=== PATIENT | male | born 1930 | race Caucasian/White ===

== ENCOUNTER → 2017-06-15 | Outpatient (CLI) | payer MEDICARE ==
[~2017-06-15] MED LIST: ACET325 PO; AKWA Tears15 ML BOTHEYES; ASPI81CH PO; Avapro PO; CALCIUM PO; CHLO25B PO; CHOL10002 PO; Cinnamon500 MG PO; FINA5 PO; FURO20 PO; GREEN TEA PO; IRBE150 PO; IRON GLYCINATE 28 MG PO; KRILL OIL 5001 EACH PO; LEG CRAMP PO; MEGARED PO; METO50 PO; METO50ER PO; NIAC500ER PO; POTCHL10ER PO; PROSTATE COMPLEX PO; PROSTATE HEALT1 EACH PO; ROSU10TA PO; ROSU5 PO; TAMS.4ER PO; TEMOVATE15 GM TOP; VIT D3 PO
[2017-06-15 16:07] LABS: BASOPHILS ABSOLUTE AUTO 0.05 K/mm3 (0.00-0.23); BASOPHILS PERCENT AUTO 1 % (0-2); EOSINOPHILS ABSOLUTE AUTO 0.26 K/mm3 (0.00-0.68); EOSINOPHILS PERCENT AUTO 4 % (0-6); Hematocrit 36.5 % (37.0-53.0); Hemoglobin 12.9 g/dL (13.5-17.5); IMMATURE GRAN ABSOLUTE AUTO 0.04 K/mm3 (0.00-0.10); IMMATURE GRAN PERCENT AUTO 1 % (0-1); LYMPHOCYTES ABSOLUTE AUTO 1.62 K/mm3 (0.84-5.20); LYMPHOCYTES PERCENT AUTO 22 % (21-46); MONOCYTES ABSOLUTE AUTO 0.75 K/mm3 (0.16-1.47); MONOCYTES PERCENT AUTO 10 % (4-13); Mean Corpuscular HGB 31.6 pg (26.0-34.0); Mean Corpuscular HGB Conc 35.3 g/dL (31.5-36.5); Mean Corpuscular Volume 90 fL (80-100); Mean Platelet Volume 9.2 fL (9.1-12.4); NEUTROPHILS ABSOLUTE AUTO 4.68 K/mm3 (1.96-9.15); NEUTROPHILS PERCENT AUTO 63 % (41-73); Platelet Count 273 K/mm3 (150-400); RDW Coefficient Variation 12.2 % (11.7-14.2); RDW Standard Deviation 39.5 fL (35.1-46.3); Red Blood Cell Count 4.08 M/mm3 (4.30-5.90)
[2017-06-15 16:18] LABS: Alanine Aminotransfer (ALT/SGP 38 U/L (12-78); Albumin, Blood 3.5 g/dL (3.4-5.0); Alk Phos 75 U/L (40-126); Anion Gap 8 mmol/L (6-16); Aspartate Aminotrans (AST/SGOT 24 U/L (12-37); Bilirubin, Total 0.4 mg/dL (0.1-1.0); Blood Urea Nitrogen 19 mg/dL (8-24); Bun/Creatinine Ratio 19.8 (12.0-20.0); CO2, Blood 27 mmol/L (21-32); Calcium, Blood 9.6 mg/dL (8.5-10.1); Chloride, Blood 102 mmol/L (98-108); Creatinine, Blood 0.96 mg/dL (0.60-1.20); Globulin, Blood 3.4 g/dL (2.2-4.0); Glomerular Filtration Rate >60 (60-); Glucose, Blood 128 mg/dL (70-99); Potassium, Blood 3.6 mmol/L (3.5-5.5); Sodium, Blood 137 mmol/L (136-145); Total Protein, Blood 6.9 g/dL (6.4-8.2)
== END ==
LOC: LAB EV 16:01 → LAB SHORT 16:01
PROVIDERS: Physician Assistant
DX: R05 Cough (principal); R06.01 Orthopnea
CPT/HCPCS: 80053; 83880; 85025

== ENCOUNTER 2017-10-26 06:35 | Inpatient (IN) | payer MEDICARE ==
[~2017-10-26] VITALS: Ht 167.6 cm; Wt 91.9 kg
[~2017-10-26 06:35] MED LIST changes: -AKWA Tears15 ML BOTHEYES; -FURO20 PO; -METO50ER PO; -POTCHL10ER PO; -ROSU10TA PO; -TEMOVATE15 GM TOP
[2017-10-26 07:02] LABS: BASOPHILS ABSOLUTE AUTO 0.02 K/mm3 (0.00-0.23); BASOPHILS PERCENT AUTO 0 % (0-2); EOSINOPHILS ABSOLUTE AUTO 0.09 K/mm3 (0.00-0.68); EOSINOPHILS PERCENT AUTO 2 % (0-6); Hemoglobin 13.7 g/dL (13.5-17.5); IMMATURE GRAN ABSOLUTE AUTO 0.01 K/mm3 (0.00-0.10); IMMATURE GRAN PERCENT AUTO 0 % (0-1); LYMPHOCYTES ABSOLUTE AUTO 0.89 K/mm3 (0.84-5.20); LYMPHOCYTES PERCENT AUTO 15 % (21-46); MONOCYTES ABSOLUTE AUTO 0.56 K/mm3 (0.16-1.47); MONOCYTES PERCENT AUTO 9 % (4-13); Mean Corpuscular HGB 31.4 pg (26.0-34.0); Mean Corpuscular HGB Conc 34.3 g/dL (31.5-36.5); Mean Corpuscular Volume 92 fL (80-100); Mean Platelet Volume 9.3 fL (9.1-12.4); NEUTROPHILS ABSOLUTE AUTO 4.51 K/mm3 (1.96-9.15); NEUTROPHILS PERCENT AUTO 74 % (41-73); Platelet Count 202 K/mm3 (150-400); RDW Coefficient Variation 12.1 % (11.7-14.2); RDW Standard Deviation 40.8 fL (35.1-46.3); Red Blood Cell Count 4.37 M/mm3 (4.30-5.90); White Blood Cell Count 6.08 K/mm3 (4.00-11.30)
[2017-10-26 07:14] LABS: Alanine Aminotransfer (ALT/SGP 26 U/L (12-78); Albumin, Blood 3.7 g/dL (3.4-5.0); Albumin/Globulin Ratio 1.2 (0.8-1.8); Alk Phos 61 U/L (50-136); Anion Gap 10 mmol/L (6-16); Aspartate Aminotrans (AST/SGOT 43 U/L (12-37); Bilirubin, Total 0.5 mg/dL (0.1-1.0); Blood Urea Nitrogen 18 mg/dL (8-24); Bun/Creatinine Ratio 23.8 (12.0-20.0); CO2, Blood 24 mmol/L (21-32); Calcium, Blood 8.9 mg/dL (8.5-10.1); Chloride, Blood 108 mmol/L (98-108); Creatinine, Blood 0.76 mg/dL (0.60-1.20); Globulin, Blood 3.1 g/dL (2.2-4.0); Glomerular Filtration Rate >60 (60-); Glucose, Blood 140 mg/dL (70-99); Potassium, Blood 3.6 mmol/L (3.5-5.5); Sodium, Blood 142 mmol/L (136-145); Total Protein, Blood 6.8 g/dL (6.4-8.2); Troponin I <0.015 ng/mL (0.000-0.040)
[2017-10-26 07:22] LABS: International Normalized Ratio 0.95; Prothrombin Time Results 9.8 Sec (9.7-11.5)
[2017-10-26 07:54] LABS: Source, Urine Clean Catch
[2017-10-26] MEDS ORDERED: ROSU10TA PO (08:02)
[2017-10-26] MEDS ORDERED: POTCHL10ER PO (08:03)
[2017-10-26] MEDS ORDERED: FURO20 PO (08:03)
[2017-10-26 08:07] LABS: Bilirubin, Urine Neg (Neg); Blood, Urine 2+ (Neg); Glucose Qualitative, Urine 1+ (Neg); Ketones, Urine 1+ (Neg); Leukocyte Esterase, Urine Neg (Neg); Nitrite, Urine Neg (Neg); Protein, Urine 2+ (Neg); Urobilinogen, Urine NORM (Normal)
[2017-10-26 08:21] LABS: Appearance, Urine Clear (Clear); Color, Urine Yellow (P-Yellow)
[2017-10-26 08:23] LABS: Bacteria Rare /hpf; Calcium Oxalate Crystals Few /hpf; Mucus Light (0-Heavy); Red Blood Cells, Urine 0-2 /hpf (0-2); Squamous Epithelial Cells Few /hpf (Few)
[2017-10-30 10:12] LABS: BASOPHILS ABSOLUTE AUTO 0.02 K/mm3 (0.00-0.23); BASOPHILS PERCENT AUTO 0 % (0-2); EOSINOPHILS ABSOLUTE AUTO 0.02 K/mm3 (0.00-0.68); EOSINOPHILS PERCENT AUTO 0 % (0-6); Hemoglobin 15.1 g/dL (13.5-17.5); IMMATURE GRAN ABSOLUTE AUTO 0.03 K/mm3 (0.00-0.10); IMMATURE GRAN PERCENT AUTO 0 % (0-1); LYMPHOCYTES ABSOLUTE AUTO 0.89 K/mm3 (0.84-5.20); LYMPHOCYTES PERCENT AUTO 9 % (21-46); MONOCYTES ABSOLUTE AUTO 0.85 K/mm3 (0.16-1.47); MONOCYTES PERCENT AUTO 9 % (4-13); Mean Corpuscular HGB 31.3 pg (26.0-34.0); Mean Corpuscular HGB Conc 34.3 g/dL (31.5-36.5); Mean Corpuscular Volume 91 fL (80-100); Mean Platelet Volume 9.5 fL (9.1-12.4); NEUTROPHILS ABSOLUTE AUTO 8.05 K/mm3 (1.96-9.15); NEUTROPHILS PERCENT AUTO 82 % (41-73); Platelet Count 239 K/mm3 (150-400); RDW Standard Deviation 40.2 fL (35.1-46.3); Red Blood Cell Count 4.82 M/mm3 (4.30-5.90); White Blood Cell Count 9.86 K/mm3 (4.00-11.30)
[2017-10-30 10:24] LABS: Anion Gap 10 mmol/L (6-16); Blood Urea Nitrogen 30 mg/dL (8-24); Bun/Creatinine Ratio 32.3 (12.0-20.0); CO2, Blood 25 mmol/L (21-32); Calcium, Blood 9.4 mg/dL (8.5-10.1); Chloride, Blood 104 mmol/L (98-108); Creatinine, Blood 0.93 mg/dL (0.60-1.20); Glomerular Filtration Rate >60 (60-); Glucose, Blood 162 mg/dL (70-99); Potassium, Blood 3.8 mmol/L (3.5-5.5); Sodium, Blood 139 mmol/L (136-145)
[2017-11-03 05:18] LABS: Anion Gap 8 mmol/L (6-16); Blood Urea Nitrogen 16 mg/dL (8-24); CO2, Blood 27 mmol/L (21-32); Calcium, Blood 8.6 mg/dL (8.5-10.1); Chloride, Blood 106 mmol/L (98-108); Glomerular Filtration Rate >60 (60-); Glucose, Blood 113 mg/dL (70-99); Potassium, Blood 3.3 mmol/L (3.5-5.5); Sodium, Blood 141 mmol/L (136-145)
[2017-11-06 18:41] LABS: Thyroid Stimulating Hormone 2.44 uIU/mL (0.360-4.800)
[2017-11-07 10:30] LABS: Anion Gap 8 mmol/L (6-16); Blood Urea Nitrogen 14 mg/dL (8-24); Bun/Creatinine Ratio 16.2 (12.0-20.0); CO2, Blood 26 mmol/L (21-32); Calcium, Blood 9.7 mg/dL (8.5-10.1); Chloride, Blood 103 mmol/L (98-108); Creatinine, Blood 0.87 mg/dL (0.60-1.20); Glomerular Filtration Rate >60 (60-); Glucose, Blood 136 mg/dL (70-99); Potassium, Blood 4.1 mmol/L (3.5-5.5); Sodium, Blood 137 mmol/L (136-145)
[2017-11-09 05:13] LABS: Potassium, Blood 4.4 mmol/L (3.5-5.5)
[2017-11-13 12:13] LABS: Adenovirus F 40/41 Not Detected (NOT DETECT); Astrovirus Not Detected (NOT DETECT); Campylobacter Sp Not Detected (NOT DETECT); Cryptosporidium Not Detected (NOT DETECT); Cyclospora Cayetanensis Not Detected (NOT DETECT); E. Coli O157 Not Detected (NOT DETECT); Entamoeba Histolytica Not Detected (NOT DETECT); Enteroaggregative E. coli-EAEC Not Detected (NOT DETECT); Enteropathogenic E. coli-EPEC Not Detected (NOT DETECT); Enterotoxigenic E. coli-ETEC Not Detected (NOT DETECT); Giardia Lamblia Not Detected (NOT DETECT); Norovirus GI/GII Not Detected (NOT DETECT); Plesiomonas Shigelloides Not Detected (NOT DETECT); Rotavirus A Not Detected (NOT DETECT); Salmonella Sp Not Detected (NOT DETECT); Sapovirus Not Detected (NOT DETECT); Shiga Toxin-prod E. coli-STEC Not Detected (NOT DETECT); Shigella/Enteroin E. coli-EIEC Not Detected (NOT DETECT); Vibrio Cholerae Not Detected (NOT DETECT); Vibrio Sp Not Detected (NOT DETECT); Yersinia Enterocolitica Not Detected (NOT DETECT)
[2017-11-14 07:22] LABS: Anion Gap 8 mmol/L (6-16); Blood Urea Nitrogen 16 mg/dL (8-24); Bun/Creatinine Ratio 19.9 (12.0-20.0); CO2, Blood 26 mmol/L (21-32); Calcium, Blood 9.2 mg/dL (8.5-10.1); Chloride, Blood 107 mmol/L (98-108); Glomerular Filtration Rate >60 (60-); Glucose, Blood 109 mg/dL (70-99); Potassium, Blood 4.3 mmol/L (3.5-5.5); Sodium, Blood 141 mmol/L (136-145)
[2017-11-14] MEDS ORDERED: METO50ER PO (16:19)
[2017-11-14] MEDS ORDERED: TEMOVATE15 GM TOP (16:20)
[2017-11-14] MEDS ORDERED: AKWA Tears15 ML BOTHEYES (16:22)
== END 2017-11-15 13:35 | disposition home health service (06) | DRG 390 ==
LOC: DELPENDDIS → ER 06:35 → MEDS 06:36 → ENPENDDIS 11-04 12:04 → EDPENDDIS 11-14 15:44 → MEDS 11-15 13:35
PROVIDERS: Emergency Medicine; Internal Medicine; Internal Medicine Gastroenterology; Student in an Organized Health Care Education/Training Program
PROC: 0D7 Gastrointestinal System, Dilation (ICD-10-PCS; principal; 2017-11-02 15:30)
PROC: 0D7 Gastrointestinal System, Dilation (ICD-10-PCS; 2017-11-08)
PROC: 5A09357 Assistance with Respiratory Ventilation, Less than 24 Consecutive Hours, Continuous Positive Airway Pressure (ICD-10-PCS; 2017-11-10)
DX: K56.0 Paralytic ileus (principal); I10 Essential (primary) hypertension; Z95.0 Presence of cardiac pacemaker; E78.5 Hyperlipidemia, unspecified; G47.33 Obstructive sleep apnea (adult) (pediatric); E66.9 Obesity, unspecified; R14.0 Abdominal distension (gaseous); R06.6 Hiccough; R19.7 Diarrhea, unspecified; N40.1 Benign prostatic hyperplasia with lower urinary tract symptoms; R33.8 Other retention of urine; E87.6 Hypokalemia; K43.9 Ventral hernia without obstruction or gangrene; K59.00 Constipation, unspecified; I25.9 Chronic ischemic heart disease, unspecified; Z68.34 Body mass index [BMI] 34.0-34.9, adult; R21 Rash and other nonspecific skin eruption
CPT/HCPCS: 36415; 36416; 70450; 71045; 71260; 74018; 74022; 74177; 80048; 80051; 80053; 81001; 82150; 83690; 83735; 83880; 84443; 84484; 85025; 85610; 87493; 87507; 93005; 93010; 94660; 94762; 96360; 96361; 97110; 97116; 97161; 97165; 97530; 97535; 99285-25; G0378; G0515; G8978; G8979; G8987; G8988; J3480; J7120; Q9967

== ENCOUNTER 2021-05-01 20:07 | Inpatient (IN) | payer OTHER ==
[~2021-05-01] VITALS: Ht 162.6 cm; Wt 88.9 kg
[~2021-05-01 20:07] MED LIST changes: +AKWA Tears15 ML BOTHEYES; -CHOL10002 PO; +FURO20 PO; +METO50ER PO; +POTCHL10ER PO; +ROSU10TA PO; +TEMOVATE15 G1 TOP; +THERA-D2000 UNIT PO
[2021-05-01 20:40] LABS: BASOPHILS ABSOLUTE AUTO 0.02 K/mm3 (0.00-0.23); BASOPHILS PERCENT AUTO 0 % (0-2); EOSINOPHILS PERCENT AUTO 0 % (0-6); Hematocrit 43.2 % (37.0-53.0); Hemoglobin 14.9 g/dL (13.5-17.5); IMMATURE GRAN ABSOLUTE AUTO 0.07 K/mm3 (0.00-0.10); IMMATURE GRAN PERCENT AUTO 1 % (0-1); LYMPHOCYTES ABSOLUTE AUTO 0.36 K/mm3 (0.84-5.20); LYMPHOCYTES PERCENT AUTO 3 % (21-46); MONOCYTES ABSOLUTE AUTO 0.66 K/mm3 (0.16-1.47); MONOCYTES PERCENT AUTO 5 % (4-13); Mean Corpuscular HGB 31.9 pg (26.0-34.0); Mean Corpuscular HGB Conc 34.5 g/dL (31.5-36.5); Mean Corpuscular Volume 93 fL (80-100); Mean Platelet Volume 9.8 fL (9.1-12.4); NEUTROPHILS ABSOLUTE AUTO 11.69 K/mm3 (1.96-9.15); NEUTROPHILS PERCENT AUTO 91 % (41-73); Platelet Count 191 K/mm3 (150-400); RDW Coefficient Variation 12.7 % (11.7-14.2); RDW Standard Deviation 43.2 fL (35.1-46.3); Red Blood Cell Count 4.67 M/mm3 (4.30-5.90)
[2021-05-01 20:59] LABS: Alanine Aminotransfer (ALT/SGP 138 U/L (12-78); Albumin, Blood 3.9 g/dL (3.4-5.0); Albumin/Globulin Ratio 1.3 (0.8-1.8); Alk Phos 68 U/L (50-136); Anion Gap 7 mmol/L (6-16); Aspartate Aminotrans (AST/SGOT 187 U/L (12-37); Blood Urea Nitrogen 24 mg/dL (8-24); Bun/Creatinine Ratio 22.9 (12.0-20.0); CO2, Blood 24 mmol/L (21-32); Calcium, Blood 9.7 mg/dL (8.5-10.1); Chloride, Blood 105 mmol/L (98-108); Creatinine, Blood 1.05 mg/dL (0.60-1.20); Globulin, Blood 2.9 g/dL (2.2-4.0); Glomerular Filtration Rate >60 (60-); Glucose, Blood 194 mg/dL (70-99); Potassium, Blood 4.7 mmol/L (3.5-5.5); Sodium, Blood 136 mmol/L (136-145); Total Protein, Blood 6.8 g/dL (6.4-8.2)
[2021-05-02 02:09] LABS: Influenza A, PCR NEGATIVE (NEGATIVE); Influenza B, PCR NEGATIVE (NEGATIVE); Resp Syncytial Virus, PCR NEGATIVE (NEGATIVE); SARS-Cov-2 (COVID-19) PCR, MMC NEGATIVE (NEGATIVE)
--- NOTE | 2021-05-02 03:12 | NUR ---
ADMIT NOTE 89 YR OLD MALE AADMITTED TO FLOOR FROM THE ED WITH DX OF ACUTE PANCREATITIS. ED RN VOICED S/S ASCITES. UPON ARRIVAL AT FLOOR, NOTE DISCOLORATION OF SKIN OF BLE AND SEVERE DRY KIN WITH SCALING OVER MOST OF BODY. NOTE EXPIRATORY WHEEZING. STATES USES CPAP AT HOME. ORIENTED TO USE OF CALL LIGHT. CALL LIGHT IN REACH
--- NOTE | 2021-05-02 18:33 | NUR ---
PATIENT NEW TO THE MED UNIT OF LAST NOC. ACUTE PANCREATITIS. LS AND BREATHING CONTINUED TO BECOME INCREASINGLY DIFFICULT DURING SHIFT. SHALLOW BREATHS, EDEMA LOWER EXTREMITIES AND ARMS. HIS CLEAR LIQUID DINNER CAME BACK UP AFTER HE ATE, BUT HE HAD NOT COMPLAINED OF NAUSEA BEFORE HAND. THE DOCTOR WAS CALLED AND STAT IV LASIX 20MG WAS ORDERED AND ADMINISTERED ALONG WITH ZOFRAN A PRN. ORDERS WERE ALSO OBTAINED FOR BD PROTOCAL AND CPAP. PATIENT HAS RECIEVED THESE MEDICATIONS, IS CLEANED UP AND RESTING IN BED IN A SITTING POSITION-HEAD ELEVATED.
--- NOTE | 2021-05-02 22:12 | NUR ---
RT WAS NOTIFIED OF CPAP ORDERS ( PT VOICED USES CPAP AT HOME). rT ATTEMPTED TO PLACE IT AND PT BEGAN TO VOMIT. PT CLEANED UP. PLACED ON O2 PER NC. CALL PLACED TO MD FOR MORE Antiemetic MEDS. PHENERGAN ORDERED. CALL LIGHT IN REACH.
--- NOTE | 2021-05-02 22:39 | NUR ---
PHENERGAN WAS ADMINISTERED - SEE JUN. CURRENTLY RESTING QUIETLY, HOB AT 90 DEGREES. EYES CLOSED. NO NOTED EMESIS. MED APPEARS EFFECTIVE. O2 PER NC. CALL LIGHT IN REACH
[2021-05-03] MEDS ORDERED: FURO20 PO (00:08)
[2021-05-03] MEDS ORDERED: LOSARTAN POTAS100 MG PO (00:09)
--- NOTE | 2021-05-03 03:16 | NUR ---
CRUSHER ASSEMBLER SUMMARY A FEW BOUTS OF EMESIS, GREENISH BROWN LIQUID AT SHIFT COMMENCE. ZOFRAN HAD BEEN GIVEN, BUT EMESIS CONINUED. CALL PLACED TO MD PRACTICE CONSULTANT, PHENERGAN ORDERED AND GIVEN. HOB WAS PALCED AT 90 DEGREES, TO PREVENT POSSIBLE ASPIRATION. O2 PER NC, PT HAD BEEN VOMITING AND CPAP WAS DEEMED NOT APPROPRIATE AT THE TIME. MED EFFECTIVE AND HAS BEEN RESTING QUIETLY AT INTERVALS SINCE. PT THEN BEGAN TO PULL OFF HIS TELE, O2 CANNULA AND O2 PULSE OX IN APPARENT CONFUSION. REDIRECTED. CALL LIGHT IN REACH. WILL CONTINUE TO REDIRECT NEEDED.
[2021-05-03 05:12] LABS: BASOPHILS ABSOLUTE AUTO 0.03 K/mm3 (0.00-0.23); BASOPHILS PERCENT AUTO 0 % (0-2); EOSINOPHILS PERCENT AUTO 0 % (0-6); Hematocrit 42.1 % (37.0-53.0); IMMATURE GRAN ABSOLUTE AUTO 0.11 K/mm3 (0.00-0.10); IMMATURE GRAN PERCENT AUTO 1 % (0-1); LYMPHOCYTES PERCENT AUTO 4 % (21-46); MONOCYTES ABSOLUTE AUTO 1.07 K/mm3 (0.16-1.47); MONOCYTES PERCENT AUTO 6 % (4-13); Mean Corpuscular HGB 31.7 pg (26.0-34.0); Mean Corpuscular HGB Conc 33.3 g/dL (31.5-36.5); Mean Corpuscular Volume 96 fL (80-100); Mean Platelet Volume 10.3 fL (9.1-12.4); NEUTROPHILS PERCENT AUTO 89 % (41-73); Platelet Count 162 K/mm3 (150-400); RDW Standard Deviation 45.8 fL (35.1-46.3); Red Blood Cell Count 4.41 M/mm3 (4.30-5.90); White Blood Cell Count 17.61 K/mm3 (4.00-11.30)
[2021-05-03 05:50] LABS: Alanine Aminotransfer (ALT/SGP 85 U/L (12-78); Albumin, Blood 3.2 g/dL (3.4-5.0); Albumin/Globulin Ratio 1.1 (0.8-1.8); Alk Phos 69 U/L (50-136); Amylase, Blood 205 U/L (25-115); Anion Gap 5 mmol/L (6-16); Aspartate Aminotrans (AST/SGOT 66 U/L (12-37); Blood Urea Nitrogen 26 mg/dL (8-24); Bun/Creatinine Ratio 23.6 (12.0-20.0); CO2, Blood 25 mmol/L (21-32); Calcium, Blood 8.7 mg/dL (8.5-10.1); Chloride, Blood 109 mmol/L (98-108); Globulin, Blood 2.8 g/dL (2.2-4.0); Glomerular Filtration Rate >60 (60-); Glucose, Blood 148 mg/dL (70-99); Magnesium, Blood 2.4 mg/dL (1.6-2.4); Phosphorus, Blood 2.2 mg/dL (2.5-4.9); Potassium, Blood 3.8 mmol/L (3.5-5.5); Sodium, Blood 139 mmol/L (136-145)
[2021-05-03 09:17] LABS: Cholesterol 90 mg/dL (50-200); Triglycerides 87 mg/dL (30-160)
--- NOTE | 2021-05-03 13:10 | NUR ---
Spiritual care visit conducted. Patient is lying in bed and alert. Patient immediately tells me about his medical issues, his family unit complication and his Quaker finn. He shares about his peronal feelings and frustrations. I normalize his experience and provide therapeutic listening, pastoral career guidance counselor and prayer. Patient responds well and displays evidence of increased peace. I will continue to remain available to patient and family.
--- NOTE | 2021-05-03 15:14 | NUR ---
PT CALLED TO GET CLARIFICATION IF SHE WAS SUPPOSED TO BE DISCHARGED WITH SCRIPT FOR POTASSIUM. CALL PLACED TO DR. COOPER AND HE INFORMED THIS RN HE WOULD ELECTRONICALLY SEND PRESCRIPTION FOR KCL 20 MEQ BID X 2 WEEKS AND TO RECHECK BMP DAY BEFORE FOLLOW UP APPOINTMENT. PT CALLED LET HER KNOW OF ORDER ON HER CELL [phone] AND HAD TO LEAVE DETAILED MESSAGE. LEFT CALL BACK MED FLOOR # IN CASE SHE HAD FURTHER QUESTIONS.
--- NOTE | 2021-05-03 18:40 | NUR ---
PATIENT CONTINUES SOB, LS TIGHT. ABDOMEN DISTENDED/HARD. NO PAIN. PATIENT NPO. DID RECEIVE IV LASIX, BUT MANY PO MEDS WERE HELD. NO EPISODES OF VOMITTING TODAY. GALL STONES ARE UNABLE TO BE REMOVED DUE TO ENLARGED ABDOMEN. SURGICAL CONSULT CANCELLED.
--- NOTE | 2021-05-04 04:11 | NUR ---
INSTRUCTIONAL AIDE SUMMARY AWAKE WITH NAUSEA AT SHIFT COMMENCE. RECEIVED PHENERGAN AND MED EFFECIVE. SOMEWHAT CONFUSED AT HS, PULLED OFF CONT PULSE OX FROM HAND THEN PULLED TELE OFF WELL. REDIRECTED. TELE AND FINGER PULSE OX REPLACED. HOB UP FOR BETTER BREATHING. HAS BEEN RESTING QUIETLY WITH OCCASIONAL INTERRUPTIONS SINCE. CALL LIGHT IN REACH. LUNG SOUNDS DIMINISHED. DENIED PAIN WHEN ASKED. WILL CONTINUE TO MONITOR
[2021-05-04 05:19] LABS: BASOPHILS ABSOLUTE AUTO 0.02 K/mm3 (0.00-0.23); BASOPHILS PERCENT AUTO 0 % (0-2); EOSINOPHILS PERCENT AUTO 0 % (0-6); Hematocrit 41.7 % (37.0-53.0); Hemoglobin 14.1 g/dL (13.5-17.5); IMMATURE GRAN PERCENT AUTO 1 % (0-1); LYMPHOCYTES ABSOLUTE AUTO 0.74 K/mm3 (0.84-5.20); LYMPHOCYTES PERCENT AUTO 5 % (21-46); MONOCYTES ABSOLUTE AUTO 1.11 K/mm3 (0.16-1.47); MONOCYTES PERCENT AUTO 8 % (4-13); Mean Corpuscular HGB 31.6 pg (26.0-34.0); Mean Corpuscular HGB Conc 33.8 g/dL (31.5-36.5); Mean Corpuscular Volume 94 fL (80-100); Mean Platelet Volume 9.9 fL (9.1-12.4); NEUTROPHILS ABSOLUTE AUTO 12.83 K/mm3 (1.96-9.15); NEUTROPHILS PERCENT AUTO 87 % (41-73); Platelet Count 170 K/mm3 (150-400); RDW Coefficient Variation 12.8 % (11.7-14.2); RDW Standard Deviation 44.2 fL (35.1-46.3); Red Blood Cell Count 4.46 M/mm3 (4.30-5.90)
[2021-05-04 06:03] LABS: Magnesium, Blood 2.3 mg/dL (1.6-2.4)
[2021-05-04 06:09] LABS: Alanine Aminotransfer (ALT/SGP 57 U/L (12-78); Albumin/Globulin Ratio 0.9 (0.8-1.8); Alk Phos 67 U/L (50-136); Anion Gap 6 mmol/L (6-16); Aspartate Aminotrans (AST/SGOT 41 U/L (12-37); Bilirubin, Total 1.4 mg/dL (0.1-1.0); Blood Urea Nitrogen 25 mg/dL (8-24); Bun/Creatinine Ratio 24.8 (12.0-20.0); CO2, Blood 25 mmol/L (21-32); Calcium, Blood 8.7 mg/dL (8.5-10.1); Chloride, Blood 107 mmol/L (98-108); Creatinine, Blood 1.01 mg/dL (0.60-1.20); Globulin, Blood 3.3 g/dL (2.2-4.0); Glomerular Filtration Rate >60 (60-); Glucose, Blood 163 mg/dL (70-99); Phosphorus, Blood 2.3 mg/dL (2.5-4.9); Potassium, Blood 3.5 mmol/L (3.5-5.5); Sodium, Blood 138 mmol/L (136-145); Total Protein, Blood 6.3 g/dL (6.4-8.2)
--- NOTE | 2021-05-04 13:00 | NUR ---
PT DID NOT TOLERATE THE CLEAR LIQUID DIET. VOMITED AFTER LUNCH. MEDICATED FOR NAUSEA.
--- NOTE | 2021-05-04 15:25 | NUR ---
Spiritual care visit conducted. Patient states that he is a bit confused today and feels that he is not going in a great direction physically. He says his mind is going in a thousand directions and he can't seem to make sense of it all. He asks for prayer. I gladly provide prayer. Patient thanks me for visiting and tells me that he needs to rest. I let him do so.
--- NOTE | 2021-05-04 18:07 | NUR ---
SHIFT SUMMARY PT AOX2-3. FORGETFUL AT TIMES. PT DID NOT TOLERATE CLEAR LIQUID, AND VOMITED AT LUNCH TIME; MEDICATED FOR NAUSEA AND PAIN. HE STATED HIS PAIN ON HIS ABDOMEN. PT HAS DISTENDED ABDOMEN, PT SUPPOSED TO HAVE A LAP ARON TODAY; BUT NOT A GOOD FIT BECAUSE OF INCREASED SOB. PT IS ON 3L OF O2; RA AT BASELINE PER PT. PT ALSO USES CPAP AT NIGHT. NG TUBE PLACED WITH TWO OTHER RN.AWAITS FOR NG TUBE VERIFICATION, BED IS IN THE LOWEST POSITION AND CALL LIGHT WITHIN REACH.
--- NOTE | 2021-05-04 21:46 | NUR ---
SR. 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 CALL PLACED TO MD DECONTAMINATION TECHNICIAN. ORDERS RECEIVED TO TRANSFER TO PCU. HOWEVER, MD THEN CAME TO FLOOR AND SAID SINCE PT NO HAVING CHEST PAIN, TO KEEP HIM ON THE FLOOR. SR. UNIX SYSTEM ADMINISTRATOR NOTIFIED. PT SOMEWHAT CONFUSED (MD AWARE). CALL LIGHT IN REACH. LASIX ADMIN ORDERED - SEE MAR FOR DETAILS. WILL CONINUE TO MONITOR
--- NOTE | 2021-05-05 03:27 | NUR ---
SHORT GOODS DRIER SUMMARY EARLIER IN THE SHIFT GRAIN MILL PRODUCTS INSPECTOR CALLED, STATED PT HAVING 2ND DEGREE TYPE 2 HEART BLOCK. PT ASYMPTOMATIC, NOTIFIED, ORDERED PT TO BE TRANSFERRED TO PCU, BUT UPON ARRIVAL AT FLOOR, CHANGED HIS MIND AND STATED SINCE HE WAS NOT C/O CHEST PAIN, TO STAY ON THE FLOOR. PT CONTINUES TO HAVE SAID RHYTHM WITHOUT SYMPTOMS. VSS. RESTING QUIETLY. CALL LIGHT IN REACH. WILL CONTINUE TO MONITOR
[2021-05-05 05:38] LABS: BASOPHILS ABSOLUTE AUTO 0.02 K/mm3 (0.00-0.23); BASOPHILS PERCENT AUTO 0 % (0-2); EOSINOPHILS ABSOLUTE AUTO 0.03 K/mm3 (0.00-0.68); EOSINOPHILS PERCENT AUTO 0 % (0-6); Hematocrit 39.8 % (37.0-53.0); Hemoglobin 13.5 g/dL (13.5-17.5); IMMATURE GRAN ABSOLUTE AUTO 0.05 K/mm3 (0.00-0.10); IMMATURE GRAN PERCENT AUTO 1 % (0-1); LYMPHOCYTES ABSOLUTE AUTO 0.75 K/mm3 (0.84-5.20); LYMPHOCYTES PERCENT AUTO 7 % (21-46); MONOCYTES ABSOLUTE AUTO 1.04 K/mm3 (0.16-1.47); MONOCYTES PERCENT AUTO 10 % (4-13); Mean Corpuscular HGB 31.8 pg (26.0-34.0); Mean Corpuscular HGB Conc 33.9 g/dL (31.5-36.5); Mean Corpuscular Volume 94 fL (80-100); Mean Platelet Volume 10.4 fL (9.1-12.4); NEUTROPHILS ABSOLUTE AUTO 8.67 K/mm3 (1.96-9.15); NEUTROPHILS PERCENT AUTO 82 % (41-73); Platelet Count 192 K/mm3 (150-400); RDW Coefficient Variation 12.8 % (11.7-14.2); Red Blood Cell Count 4.24 M/mm3 (4.30-5.90); White Blood Cell Count 10.56 K/mm3 (4.00-11.30)
[2021-05-05 06:24] LABS: Alanine Aminotransfer (ALT/SGP 55 U/L (12-78); Albumin, Blood 2.6 g/dL (3.4-5.0); Albumin/Globulin Ratio 0.7 (0.8-1.8); Alk Phos 63 U/L (50-136); Anion Gap 5 mmol/L (6-16); Aspartate Aminotrans (AST/SGOT 44 U/L (12-37); Blood Urea Nitrogen 31 mg/dL (8-24); Bun/Creatinine Ratio 31.4 (12.0-20.0); CO2, Blood 28 mmol/L (21-32); Calcium, Blood 9.1 mg/dL (8.5-10.1); Chloride, Blood 107 mmol/L (98-108); Creatinine, Blood 0.99 mg/dL (0.60-1.20); Globulin, Blood 3.5 g/dL (2.2-4.0); Glomerular Filtration Rate >60 (60-); Glucose, Blood 152 mg/dL (70-99); Potassium, Blood 3.4 mmol/L (3.5-5.5); Sodium, Blood 140 mmol/L (136-145); Total Protein, Blood 6.1 g/dL (6.4-8.2)
--- NOTE | 2021-05-05 12:14 | NUR ---
CONDOM CATH UNABLE TO SECURE A CONDOM CATH TO THE PATIENT
--- NOTE | 2021-05-05 14:40 | NUR ---
Echocardiogram completed.
--- NOTE | 2021-05-05 16:05 | NUR ---
Spiritual care visit conducted. Patient is lying in bed and alert. 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 Patient also tells me that he has been having hallucinations and that he was fearful that he is going to . We then review what he knows about his medical dignosis, about the high level of care that surrounds him and what it might mean to him if he were dying. We talk about his Zoroastrianism finn, about his family and about the afterlife. I provide theological insight, anxiety containment, and empathetic listening. Patient responds well and shows signs of greater peace.
--- NOTE | 2021-05-05 17:19 | NUR ---
Brief visit this afternoon. Pt sitting in chair upon arrival. Pt receiving O2 via NC. Pt denies pain at this time. Pt denies SOB. Pt does appear dyspneic as evidenced by work of breathing and ability to speak with only 2 to 3 word sentences. Pt reports living at home alone but has family and a caregiver that assists with his careneeds. He reports ability to ambulate with FWW but needs assists with getting up out of chair or bed. He also reports needing assistance with bathing and dressing. Engaged in therapeutic discussion regarding wishes for code status. Educated on life sustaining treatments including risk factors and implications of CPR. Pt appears to mildly struggle with information and this RN suggested to discuss wishes further with family in determining goals and values regarding CPR. Ended visit to allow Pt to rest. Spoke with Primary RN Yan and discussed case. Palliative Care will F/U with Pt and family for therapeutic visits.
--- NOTE | 2021-05-05 17:28 | NUR ---
PT IS A/OX3 SELF, PLACE AND FAMILY. THE PT IS R[place]-SPARKS AND FORGETFULL AT TIMES. THE PT HAS BEEN NPO T/O THE DAY. PATIENT WAS NAUSEATED AFTER TAKEING HIS AM MEDS AND DRINKING WATER. NG TUBE WAS TURNED OFF FOR OVER AN HOUR AND THEN RESTARTED FOR THE PTS COMFORT ON LOW INTERMITEN SUCTION. PT WAS GIVEN LASIX THIS AM AND HAD SEVERAL HEAVY WET INCONTINET VOIDS. A CONDOM CATH WAS ATTEMPTED BUT WOULD NOT STAY IN PLACE. PT IS WEAK ON HIS FEET, PHYSICAL THERAPY DECLINED TO SEE THE PT THIS AFTERNOON DUE TO ELEVATED TROPONIN I, PT WAS ASSISTED UP TO THE CHAIR BY THE NURSING STAFF AND IS IN THE CHAIR AT THIS TIME. NG TUBE IN PLACE AND SECURE. PT TAKES ICE CHIPS OCCASIONALY. CALL LIGHT IN REACH. WILL CONTINUE TO MONITOR AND ASSESS FOR CHANGES
--- NOTE | 2021-05-06 01:48 | NUR ---
MULTIPLE NURSES MADE MULTIPLE ATTEMPTS TO PLACE NG TUBE WITHOUT SUCCESS. WILL MONITOR AND HAVE PHYSICIAN REASSESS IN THE AM.
--- NOTE | 2021-05-06 04:24 | NUR ---
PT RESTING IN BED. NG TUBE WAS UNABLE TO BE REPLACED. O2 REMAINS ON 2L NC. NAUSEA CONTROLLED WITHOUT PRN MEDS THIS SHIFT. LASIX CONTINUED. TROPONIN STILL ELEVATED IN THE 900'S. PALLIATIVE CARE CONSULTED. CONTINUE POC.
[2021-05-06 05:21] LABS: BASOPHILS ABSOLUTE AUTO 0.03 K/mm3 (0.00-0.23); BASOPHILS PERCENT AUTO 0 % (0-2); EOSINOPHILS ABSOLUTE AUTO 0.07 K/mm3 (0.00-0.68); EOSINOPHILS PERCENT AUTO 1 % (0-6); Hematocrit 41.3 % (37.0-53.0); Hemoglobin 13.9 g/dL (13.5-17.5); IMMATURE GRAN ABSOLUTE AUTO 0.04 K/mm3 (0.00-0.10); IMMATURE GRAN PERCENT AUTO 1 % (0-1); LYMPHOCYTES ABSOLUTE AUTO 0.76 K/mm3 (0.84-5.20); LYMPHOCYTES PERCENT AUTO 10 % (21-46); MONOCYTES ABSOLUTE AUTO 0.84 K/mm3 (0.16-1.47); MONOCYTES PERCENT AUTO 11 % (4-13); Mean Corpuscular HGB 31.8 pg (26.0-34.0); Mean Corpuscular HGB Conc 33.7 g/dL (31.5-36.5); Mean Corpuscular Volume 95 fL (80-100); Mean Platelet Volume 9.7 fL (9.1-12.4); NEUTROPHILS ABSOLUTE AUTO 6.08 K/mm3 (1.96-9.15); NEUTROPHILS PERCENT AUTO 78 % (41-73); Platelet Count 222 K/mm3 (150-400); RDW Coefficient Variation 12.6 % (11.7-14.2); RDW Standard Deviation 43.8 fL (35.1-46.3); Red Blood Cell Count 4.37 M/mm3 (4.30-5.90); White Blood Cell Count 7.82 K/mm3 (4.00-11.30)
[2021-05-06 05:48] LABS: Albumin, Blood 2.6 g/dL (3.4-5.0); Anion Gap 6 mmol/L (6-16); Blood Urea Nitrogen 33 mg/dL (8-24); Bun/Creatinine Ratio 33.2 (12.0-20.0); CO2, Blood 31 mmol/L (21-32); Chloride, Blood 104 mmol/L (98-108); Creatinine, Blood 0.99 mg/dL (0.60-1.20); Glomerular Filtration Rate >60 (60-); Glucose, Blood 152 mg/dL (70-99); Phosphorus, Blood 2.4 mg/dL (2.5-4.9); Potassium, Blood 3.3 mmol/L (3.5-5.5); Sodium, Blood 141 mmol/L (136-145)
[2021-05-06 14:47] LABS: Albumin, Blood 2.6 g/dL (3.4-5.0); Anion Gap 8 mmol/L (6-16); Blood Urea Nitrogen 34 mg/dL (8-24); Bun/Creatinine Ratio 32.4 (12.0-20.0); CO2, Blood 31 mmol/L (21-32); Chloride, Blood 101 mmol/L (98-108); Creatinine, Blood 1.05 mg/dL (0.60-1.20); Glomerular Filtration Rate >60 (60-); Glucose, Blood 207 mg/dL (70-99); Phosphorus, Blood 3.1 mg/dL (2.5-4.9); Sodium, Blood 140 mmol/L (136-145)
--- NOTE | 2021-05-06 15:07 | NUR ---
Spiritual care visit conducted. Patient immediately tells me that he is all blocked up and feeling miserable. He only opens his eyes when I first walk in and then keeps them closed the rest of the visit because he states that he is so uncomfortable. He explains about the medical measures taken to help bring relief but he says in can't put anything in and nothing is coming out either end. I provide gentle summer counselor and prayer and let patient return to trying to work through the discomfort. Patient expresses gratitude for the spiritual care visit and prayer. .
--- NOTE | 2021-05-06 17:33 | NUR ---
PT IS A/OX3, PLEASANT AND COOPERATIVE. THE PT DENIES PAIN AND NAUSEA TODAY. THE PTS ABD REMAINS FIRM AND DISTENDED. THE PT WAS GIVEN A SUPPOSITORY TODAY AND HAS HAD LOOSE BROWN GRAINY STOOLS AND HAS BEEN PASSING GAS. PT HAS BEEN SLOWLY TAKEING SMALL AMOUNTS OF CLEAR LIQUIDS AND HAS TOLERATED IT SO FAR. THE PT APPEARS TO BE BREATHING EASILY ON RA AT THIS TIME. CALL LIGHT IN REACH WILL CONTINUE TO MONITOR AND ASSESS FOR CHANGES
--- NOTE | 2021-05-07 03:44 | NUR ---
SHIFT SUMMARY NO ACUTE CHANGES TO REPORT THIS SHIFT. PT NOT COMPLANING OF PAIN AND HAS BEEN TOLERATING CLEAR LIQUID DIET. PT SLEPT MOST OF THE NIGHT, VITALS STABLE, BED IN LOWEST POSITION, CALL LIGHT WITHIN REACH.
[2021-05-07 05:22] LABS: BASOPHILS ABSOLUTE AUTO 0.04 K/mm3 (0.00-0.23); BASOPHILS PERCENT AUTO 1 % (0-2); EOSINOPHILS ABSOLUTE AUTO 0.32 K/mm3 (0.00-0.68); EOSINOPHILS PERCENT AUTO 4 % (0-6); Hematocrit 39.7 % (37.0-53.0); Hemoglobin 13.4 g/dL (13.5-17.5); IMMATURE GRAN ABSOLUTE AUTO 0.09 K/mm3 (0.00-0.10); IMMATURE GRAN PERCENT AUTO 1 % (0-1); LYMPHOCYTES ABSOLUTE AUTO 0.98 K/mm3 (0.84-5.20); LYMPHOCYTES PERCENT AUTO 12 % (21-46); MONOCYTES ABSOLUTE AUTO 1.04 K/mm3 (0.16-1.47); MONOCYTES PERCENT AUTO 12 % (4-13); Mean Corpuscular HGB 31.4 pg (26.0-34.0); Mean Corpuscular HGB Conc 33.8 g/dL (31.5-36.5); Mean Corpuscular Volume 93 fL (80-100); Mean Platelet Volume 9.9 fL (9.1-12.4); NEUTROPHILS ABSOLUTE AUTO 6.05 K/mm3 (1.96-9.15); NEUTROPHILS PERCENT AUTO 71 % (41-73); Platelet Count 241 K/mm3 (150-400); RDW Coefficient Variation 12.7 % (11.7-14.2); RDW Standard Deviation 43.8 fL (35.1-46.3); Red Blood Cell Count 4.27 M/mm3 (4.30-5.90); White Blood Cell Count 8.52 K/mm3 (4.00-11.30)
[2021-05-07 05:57] LABS: Alanine Aminotransfer (ALT/SGP 123 U/L (12-78); Albumin, Blood 2.4 g/dL (3.4-5.0); Albumin/Globulin Ratio 0.7 (0.8-1.8); Alk Phos 66 U/L (50-136); Anion Gap 6 mmol/L (6-16); Aspartate Aminotrans (AST/SGOT 93 U/L (12-37); Bilirubin, Total 1.1 mg/dL (0.1-1.0); Blood Urea Nitrogen 33 mg/dL (8-24); Bun/Creatinine Ratio 33.4 (12.0-20.0); CO2, Blood 30 mmol/L (21-32); Calcium, Blood 8.6 mg/dL (8.5-10.1); Chloride, Blood 101 mmol/L (98-108); Creatinine, Blood 0.99 mg/dL (0.60-1.20); Globulin, Blood 3.4 g/dL (2.2-4.0); Glomerular Filtration Rate >60 (60-); Glucose, Blood 164 mg/dL (70-99); Phosphorus, Blood 3.2 mg/dL (2.5-4.9); Sodium, Blood 137 mmol/L (136-145); Total Protein, Blood 5.8 g/dL (6.4-8.2)
--- NOTE | 2021-05-07 10:59 | NUR ---
Spiritual care visit conducted. Pt is sitting on a chair and more alert today. Pt is more talkative and in better spirits. He shares stories about his past and tells me that he is getting closer to being able to return home. I listen empathically and provide prayer. Pt responds well and voices appreciation for the visit. I will continue to remain available.
--- NOTE | 2021-05-07 14:18 | NUR ---
Spoke with Dr Pruett and discussed case. Pt sitting in chair upon arrival. Pt reports mild but manageable pain in the abomen. Pt appears mildly confused as evidenced by Pt asking why he needs an NG tube and why he needs to be NPO. Re-enforced education and answered questions. Received verbal permission from Pt to call his daughter and discuss case. Spoke with Primary RN Peyton and discussed case. Called and spoke with Pt's daughter Maxine. Provided update and reviewed plan of care. Maxine report speaking with her dad (Pt) and she expresses concerns that Pt is confused. Validated concerns and answered questions. Relayed conversaton that took place 2 days ago with Pt and this RN regarding wishes for code status. Reported to Maxine that Pt appeared to have difficulty processing conversation. Discussed the importance of family having a conversaton with Pt regarding wishes for CPR and consider completing a new POLST. Educated on life sustaining treatment including risk factors and implications of CPR. Maxine states she does'nt think her dad would want CPR anymore but will plan to have further conversations regarding this. Maxine expresses appreciation and reports no other concerns at this time. Palliative Care will remain available.
--- NOTE | 2021-05-07 14:24 | NUR ---
NG TUBE PLACEMENT ATTEMPT. THIS NURSE ATTEMPTED PLACEMENT OF NG TUBE PER DR. SOLIZ'S ORDER AT ABOUT 1330 WITH CHARGE NURSE ANASTACIA HINTON PRESENT. PATIENT WAS NOT TOLERATING WELL AND WAS HAVING DIFFICULTY BREATHING AND THEREFORE ATTEMPT DC'D. WHEN PULLING TUBE OUT, APRROXIMATELY THE LAST FOUR INCHES OF TUBING WAS BLOODY. DR DURAND NOTIFIED WHO WANTS NURSING STAFF TO ENCOURAGE AMBULATION AND TO CONTINUE TO FIND A SKILLED NURSE WHO MIGHT BE SUCCESSFUL AT NG TUBE PLACEMENT. DR MONSALVE CONSULTED TO INQUIRE IF HE COULD PLACE NG TUBE AND HE STATED THAT HE WOULD NOT BE ABLE TO PLACE NG TUBE.
--- NOTE | 2021-05-07 16:23 | NUR ---
16 FR NG PLACED TO R NARE. VERIFIED BY AUSCULTATION OVER ABDOMEN. CONNECTED TO WALL SUCTION WITH AIR RETURN. SECURED TO BRIDGE OF NOSE WITH ADHESIVE DRESSING.
--- NOTE | 2021-05-07 17:10 | NUR ---
SHIFT SUMMARY PT AXO TO SELF AND FOLLOWING DIRECTIONS THOUGH SLOW TO RESPOND AND [place]. NG TUBE PLACED BY ICU NURSE THIS AFTERNOON. NG TUBE AT LOW INTERMITTENT SUCTION WITH SMALL AMOUNT OF WATERY RED COLORED EMESIS. PATIENT DRANK SOME RED JUICE FOR BREAKFAST. AMBULATION ENCOURAGED. AMBULATION AT 1600 RESULTED IN LARGE AMOUNT OF GAS PASSED AND SOME LIQUID BROWN/ MUCUS STOOL. PT ABDOMEN DISTENED. NPO AT THIS TIME. INCENTIVE SPIROMETER AT BEDSIDE, EDUCATION ON USAGE DISCUSSED. BED IN LOW POSITION, CALL LIGHT WITHIN REACH.
--- NOTE | 2021-05-08 03:48 | NUR ---
PT IS ALERT TO SELF. PULLED NG TUBE AT THE BEGINNING OF THE SHIFT. HAS NOT COMPLAINT OF NAUSEA OR VOMITING. BOWEL SOUNDS ARE HYPOAACTIVE AND FIRM. PER MD, OK NOT PLACE AN NG TUBE AND WAIT HOW HE DOES IN THE DAY SHIFT. REPOSITION EVERY TWO HOURS. INCONTINENT OF URINE; WEARS A BRIEF BUTTOCK ARE RED NEEDING SKIN BARRIER CREAM. NPO. TWO PERSON ASSIST. LEFT FOOT WITH SOME EDEMA OF +1. NO C/O PAIN. O2 SATS 95% ON RA. LUNGS SOUND ARE VERY QUIET
[2021-05-08 05:13] LABS: Hematocrit 38.6 % (37.0-53.0); Hemoglobin 13.2 g/dL (13.5-17.5)
[2021-05-08 05:36] LABS: Albumin, Blood 2.3 g/dL (3.4-5.0); Anion Gap 7 mmol/L (6-16); Blood Urea Nitrogen 34 mg/dL (8-24); Bun/Creatinine Ratio 33.3 (12.0-20.0); CO2, Blood 31 mmol/L (21-32); Calcium, Blood 8.5 mg/dL (8.5-10.1); Chloride, Blood 99 mmol/L (98-108); Creatinine, Blood 1.02 mg/dL (0.60-1.20); Glomerular Filtration Rate >60 (60-); Glucose, Blood 149 mg/dL (70-99); Phosphorus, Blood 2.6 mg/dL (2.5-4.9); Potassium, Blood 2.8 mmol/L (3.5-5.5); Sodium, Blood 137 mmol/L (136-145)
--- NOTE | 2021-05-08 08:24 | NUR ---
pt laying in bed with eyes closed, wakes easily, forgetful, cooperative with care, follows commands, lungs are dim t/o, resp even and unlabored, no cough noted, currently on r/a, hrr, tele in place running paced rhythm, +1 edema noted, ppp faint, cap refill <3sec, vs stable, afebrile, iv to rac site is clear and patent, bt hypoactive, abd large soft nontender, incont of urine, attends in place, kendall area is red, pt is very weak, he is a 2 person transfer, refusing cpap at hs per report, call light in reach.
[2021-05-08 15:41] LABS: Phosphorus, Blood 2.4 mg/dL (2.5-4.9); Potassium, Blood 3.3 mmol/L (3.5-5.5)
--- NOTE | 2021-05-08 19:05 | NUR ---
pt worked with pt today, did not get into a chair though, he slept when left undisturbed, no acute changes, call light in reach.
--- NOTE | 2021-05-09 05:23 | NUR ---
PT HAS BEEN ALERT AND ORIENTED FOR MOST OF THE NIGHT. AROUND 3AM PT REMOVED HIS TELE AND BIPAP; SEEMED CONFUSED BUT ANSWERED QUESTIONS APPROPRIATE; KNEW PLACE, NAME AND LAST NAME AMD DATE. DENIES PAIN. CONTINUES TO BE INCONTINENT OF URINE. REPOSITION EVERY TWO HOURS.
[2021-05-09 06:52] LABS: BASOPHILS ABSOLUTE AUTO 0.06 K/mm3 (0.00-0.23); BASOPHILS PERCENT AUTO 1 % (0-2); EOSINOPHILS ABSOLUTE AUTO 0.38 K/mm3 (0.00-0.68); EOSINOPHILS PERCENT AUTO 5 % (0-6); Hematocrit 38.6 % (37.0-53.0); Hemoglobin 12.8 g/dL (13.5-17.5); IMMATURE GRAN PERCENT AUTO 3 % (0-1); LYMPHOCYTES ABSOLUTE AUTO 1.08 K/mm3 (0.84-5.20); LYMPHOCYTES PERCENT AUTO 15 % (21-46); MONOCYTES ABSOLUTE AUTO 0.93 K/mm3 (0.16-1.47); MONOCYTES PERCENT AUTO 12 % (4-13); Mean Corpuscular HGB 31.6 pg (26.0-34.0); Mean Corpuscular HGB Conc 33.2 g/dL (31.5-36.5); Mean Corpuscular Volume 95 fL (80-100); Mean Platelet Volume 9.6 fL (9.1-12.4); NEUTROPHILS ABSOLUTE AUTO 4.82 K/mm3 (1.96-9.15); NEUTROPHILS PERCENT AUTO 65 % (41-73); Platelet Count 248 K/mm3 (150-400); RDW Coefficient Variation 12.6 % (11.7-14.2); RDW Standard Deviation 44.5 fL (35.1-46.3); Red Blood Cell Count 4.05 M/mm3 (4.30-5.90); White Blood Cell Count 7.47 K/mm3 (4.00-11.30)
[2021-05-09 07:13] LABS: Alanine Aminotransfer (ALT/SGP 81 U/L (12-78); Albumin, Blood 2.2 g/dL (3.4-5.0); Albumin/Globulin Ratio 0.7 (0.8-1.8); Alk Phos 61 U/L (50-136); Anion Gap 6 mmol/L (6-16); Aspartate Aminotrans (AST/SGOT 46 U/L (12-37); Bilirubin, Total 0.6 mg/dL (0.1-1.0); Blood Urea Nitrogen 30 mg/dL (8-24); Bun/Creatinine Ratio 31.5 (12.0-20.0); CO2, Blood 30 mmol/L (21-32); Calcium, Blood 8.2 mg/dL (8.5-10.1); Chloride, Blood 103 mmol/L (98-108); Creatinine, Blood 0.95 mg/dL (0.60-1.20); Glomerular Filtration Rate >60 (60-); Glucose, Blood 150 mg/dL (70-99); Phosphorus, Blood 2.6 mg/dL (2.5-4.9); Potassium, Blood 3.2 mmol/L (3.5-5.5); Sodium, Blood 139 mmol/L (136-145); Total Protein, Blood 5.2 g/dL (6.4-8.2)
--- NOTE | 2021-05-09 09:36 | NUR ---
pt sleeping with cpap in place, wakes easily, got him to chair for breakfast with two person assist, gait belt and walker, a/ox3, forgetful, cooperative with care, follows commands well, denies pain, lungs are dim t/o, resp even and unlabored, no cough noted, hrr, tele in place running paced rhythm, see strip, trace edema noted to b/l le, iv to rfa and lac sites are clear and patent, btx4, hypoactive, abd large soft nontender, incont of urine and stool, attends in place, skin has some red patches, and very dry flakey skin, frail, maew but is stiff and generalized weakness, jamaal, call light in reach.
--- NOTE | 2021-05-09 18:22 | NUR ---
pt sat up in the chair for a few hrs this am, was tired when we got him back to bed, didn't want to eat lunch, watching tv at this time. no acute changes, call light in reach.
--- NOTE | 2021-05-10 05:13 | NUR ---
SHIFT SUMMARY: THE PT IS A/OX4. HE DID NOT HAVE ANY C/O OF NAUSEA OR ABDOMINAL DISCOMFORT/PAIN. BOWEL TONES ARE PRESENT, BUT REMAIN HYPOACTIVE. PER TELE MONITOR HE WAS V-PACED. THE PT WAS COOPERATIVE WITH ALL CARE. HIS CALL LIGHT IS WITHIN REACH AND WE'LL CONTINUE TO MONITOR THE REST OF THE SHIFT.
[2021-05-10 05:37] LABS: BASOPHILS ABSOLUTE AUTO 0.06 K/mm3 (0.00-0.23); BASOPHILS PERCENT AUTO 1 % (0-2); EOSINOPHILS ABSOLUTE AUTO 0.37 K/mm3 (0.00-0.68); EOSINOPHILS PERCENT AUTO 4 % (0-6); IMMATURE GRAN ABSOLUTE AUTO 0.32 K/mm3 (0.00-0.10); IMMATURE GRAN PERCENT AUTO 4 % (0-1); LYMPHOCYTES ABSOLUTE AUTO 1.32 K/mm3 (0.84-5.20); LYMPHOCYTES PERCENT AUTO 16 % (21-46); MONOCYTES ABSOLUTE AUTO 0.95 K/mm3 (0.16-1.47); MONOCYTES PERCENT AUTO 11 % (4-13); Mean Corpuscular HGB 31.2 pg (26.0-34.0); Mean Corpuscular HGB Conc 32.5 g/dL (31.5-36.5); Mean Corpuscular Volume 96 fL (80-100); Mean Platelet Volume 9.7 fL (9.1-12.4); NEUTROPHILS PERCENT AUTO 64 % (41-73); Platelet Count 270 K/mm3 (150-400); RDW Coefficient Variation 12.6 % (11.7-14.2); RDW Standard Deviation 44.2 fL (35.1-46.3); Red Blood Cell Count 4.17 M/mm3 (4.30-5.90); White Blood Cell Count 8.32 K/mm3 (4.00-11.30)
[2021-05-10 06:08] LABS: Alanine Aminotransfer (ALT/SGP 89 U/L (12-78); Albumin, Blood 2.3 g/dL (3.4-5.0); Albumin/Globulin Ratio 0.8 (0.8-1.8); Alk Phos 74 U/L (50-136); Anion Gap 6 mmol/L (6-16); Aspartate Aminotrans (AST/SGOT 46 U/L (12-37); Bilirubin, Total 0.7 mg/dL (0.1-1.0); Blood Urea Nitrogen 27 mg/dL (8-24); Bun/Creatinine Ratio 27.5 (12.0-20.0); CO2, Blood 33 mmol/L (21-32); Calcium, Blood 8.2 mg/dL (8.5-10.1); Chloride, Blood 100 mmol/L (98-108); Creatinine, Blood 0.98 mg/dL (0.60-1.20); Globulin, Blood 2.9 g/dL (2.2-4.0); Glomerular Filtration Rate >60 (60-); Glucose, Blood 148 mg/dL (70-99); Potassium, Blood 3.1 mmol/L (3.5-5.5); Sodium, Blood 139 mmol/L (136-145); Total Protein, Blood 5.2 g/dL (6.4-8.2)
--- NOTE | 2021-05-10 17:52 | NUR ---
SHIFT SUMMARY PT UP TO CHAIR FOR MEALS TODAY. VOIDING INCONT, BUT LARGE VOLUMES. PT DENIES PAIN THIS SHIFT. GIVEN MILK OF MAG TO HELP WITH BM AND PRUNE JUICE OFFERED WITH DINNER THIS AFTERNOON. PT PASSING LARGE VOLUMES OF GAS. OLD IV REMOVED FROM R AC. OTHER IV PATENT. NO ACUTE CHANGES IN ASSESSMENT AT THIS TIME. VS REVIEWED. DR. RANGEL REQUESTING PT GET A SUPPOSITORY IF PT DOES NOT HAVE A BM THIS AFTERNOON.
--- NOTE | 2021-05-11 05:08 | NUR ---
89m year old MAle with CAD hx CABG & Pacemaker was admitted with pancreatitis, & SBO. ABD form distended hypoactive BS x 4. Denies pain or acute distress. On tele monitoring with paced rate in 60s. ON room air & uses bipap at HS for DIETER. \
[2021-05-11 09:24] LABS: Anion Gap 4 mmol/L (6-16); Blood Urea Nitrogen 18 mg/dL (8-24); Bun/Creatinine Ratio 18.5 (12.0-20.0); CO2, Blood 33 mmol/L (21-32); Chloride, Blood 101 mmol/L (98-108); Creatinine, Blood 0.97 mg/dL (0.60-1.20); Glomerular Filtration Rate >60 (60-); Glucose, Blood 164 mg/dL (70-99); Sodium, Blood 138 mmol/L (136-145)
--- NOTE | 2021-05-11 17:17 | NUR ---
SHIFT SUMMARY PT GIVEN SUPPOSITORY AND MILK OF MAG THIS AM TO HELP WITH BM. PT HAS SINCE HAD A LARGE FORMED BM, A SMALL LOOSE BM, AND THEN A LARGE JELLATINOUS/CLEAR STOOL THIS AFTERNOON. DR. RANGEL NOTIFIED OF THE LAST BM, ORDERED TO MONITOR FOR FURTHER LOOSE STOOLS AND SEND A SAMPLE FOR C.DIFF IF ANOTHER LOOSE STOOL OCCURS. PT UPGRADED TO A CARDIAC DIET TODAY. TOLERTING WELL WITH NO NAUSEA OR VOMITING. NO OTHER ACUTE CHANGES IN ASSESSMENT AT THIS TIME. PTS DAUGHTER UPDATED ON PLAN OF CARE AND POSSIBLE DC TOMORROW PER CARE MANAGEMENT. VS REVIEWED. PT UP IN BED. CALL LIGHT IN REACH.
[2021-05-12 06:05] LABS: Alanine Aminotransfer (ALT/SGP 75 U/L (12-78); Albumin, Blood 2.3 g/dL (3.4-5.0); Albumin/Globulin Ratio 0.9 (0.8-1.8); Alk Phos 73 U/L (50-136); Anion Gap 6 mmol/L (6-16); Aspartate Aminotrans (AST/SGOT 40 U/L (12-37); Bilirubin, Total 0.4 mg/dL (0.1-1.0); Blood Urea Nitrogen 22 mg/dL (8-24); Bun/Creatinine Ratio 23.4 (12.0-20.0); CO2, Blood 31 mmol/L (21-32); Calcium, Blood 8.6 mg/dL (8.5-10.1); Chloride, Blood 103 mmol/L (98-108); Creatinine, Blood 0.94 mg/dL (0.60-1.20); Globulin, Blood 2.6 g/dL (2.2-4.0); Glomerular Filtration Rate >60 (60-); Glucose, Blood 174 mg/dL (70-99); Potassium, Blood 3.7 mmol/L (3.5-5.5); Sodium, Blood 140 mmol/L (136-145); Total Protein, Blood 4.9 g/dL (6.4-8.2)
--- NOTE | 2021-05-12 11:51 | NUR ---
Received referral from nurse personal caregiver (Mireya Javier) on 05/12/2021. Patient is to discharge 05/12/2021 with orders for home health and elected [facility]. Contacted patient's daughter (Maxine Eugene) at number listed on patient's demographic sheet to further discuss the above. Patient's daughter is agreeable to the above. Discussed homebound status definition with patient's daughter. Patient's daughter verbalized understanding. Discussed what home health is vs what it is not (in home caregivers/housekeeping). Patient's daughter verbalized understanding. Discussed the next steps in the process of an initial assessment to determine frequency of visits. Again patient's daughter verbalized understanding. Offered a chance for patient's daughter to ask questions regarding the above of which there were none. Gathered all supporting documentation for referral (face sheet, face to face, med list, H&P, and most recent PT assessment) and sent to [facility] for review. No further interventions required. Lou Farooq Referral Liaison
--- NOTE | 2021-05-12 12:02 | NUR ---
Spiritual care visit conducted. Pt tells me that he will DC today. He expresses that he is feeling much better than when he arrived at the hospital. He is experiencing far less pain and is breathing much easier. I provide a prayer of blessing. Pt voices appreciation for the visits from spiritual care.
[2021-05-12] MEDS ORDERED: ACET325 PO (12:44)
[2021-05-12] MEDS ORDERED: FINA5 PO (12:44)
[2021-05-12] MEDS ORDERED: TAMS.4ER PO (12:45)
[2021-05-12] MEDS ORDERED: ELIQUIS5 M2 PO (12:45)
--- NOTE | 2021-05-12 16:45 | NUR ---
DISCHARGE SUMMARY: PATIENT DENIED PAIN THROUGHOUT SHIFT. PATIENT UP TO THE CHAIR FOR BREAKFAST AND MOST OF THE MORNING. PATIENT CONTINUES TO HAVE A NON-PRODUCTIVE WET COUGH. IMPROVED FROM TWO DAYS AGO. PATIENT STABLE ON RA. PATIENT HAD SOME SHORTNESS OF BREATH WITH STAND-PIVOT TO THE CHAIR. PATIENT RECOVERED QUICKLY. PATIENT ABLE TO EAT BREAKFAST WITHOUT ANY NAUSEA OR ABDOMINAL DISCOMFORT. PATIENT PASSING FLATUS. PER ORDERS, PATIENT READY FOR DISCHARGE. DISCHARGE INSTRUCTIONS AND EDUCATION PROVIDED TO PATIENT AND DAUGHTER. UNABLE TO MAKE ALL OF APPOINTMENTS FOR THE PATIENT. NOTIFIED DAUGHTER JESUS ALBERTO OF NEED. PATIENT DISCHARGED IN WHEELCHAIR WITH MARKETING COMMUNICATIONS ASSOCIATE AND RN. PATIENT STABLE AT TIME OF DISCHARGE. PATIENT DISCHARGED IN
== END 2021-05-12 14:49 | disposition home health service (06) | DRG 438 ==
LOC: ER 20:07 → MEDS 05-02 02:55
PROVIDERS: Emergency Medicine; Family Medicine; Internal Medicine; Physician Assistant; ADMIT Internal Medicine
DX: K85.10 Biliary acute pancreatitis without necrosis or infection (principal); J96.01 Acute respiratory failure with hypoxia; I50.31 Acute diastolic (congestive) heart failure; I48.92 Unspecified atrial flutter; J98.11 Atelectasis; K56.609 Unspecified intestinal obstruction, unspecified as to partial versus complete obstruction; K56.7 Ileus, unspecified; Z20.822 Contact with and (suspected) exposure to COVID-19; Z23 Encounter for immunization; E87.6 Hypokalemia; R73.9 Hyperglycemia, unspecified; E83.39 Other disorders of phosphorus metabolism; I11.0 Hypertensive heart disease with heart failure; E66.9 Obesity, unspecified; G47.33 Obstructive sleep apnea (adult) (pediatric); I25.10 Atherosclerotic heart disease of native coronary artery without angina pectoris; I49.5 Sick sinus syndrome; D72.829 Elevated white blood cell count, unspecified; E78.5 Hyperlipidemia, unspecified; Z68.33 Body mass index [BMI] 33.0-33.9, adult; Z87.891 Personal history of nicotine dependence; Z86.010 Personal history of colon polyps; Z99.89 Dependence on other enabling machines and devices; Z98.890 Other specified postprocedural states; Z95.0 Presence of cardiac pacemaker; Z95.1 Presence of aortocoronary bypass graft; Z88.8 Allergy status to other drugs, medicaments and biological substances; Z79.899 Other long term (current) drug therapy
CPT/HCPCS: 0241U; 36415; 71045; 71046; 74018; 74176; 80048; 80053; 80069; 82150; 82465; 83690; 83735; 83880; 84100; 84132; 84145; 84478; 84484; 85014; 85018; 85025; 86140; 90686; 93005; 93010; 94640; 94660; 94760; 94762; 96374; 96375; 97110; 97116; 97162; 97530; 99285-25; A9270; C8929; J0696; J1170; J1650; J1940; J2405; J2550; J2765; J7030; J7040; J7060; Q9957

== ENCOUNTER 2021-10-13 06:54 | Day surgery (SDC) | payer MEDICARE ==
[~2021-10-13] VITALS: Ht 162.6 cm; Wt 102.0 kg
[~2021-10-13 06:54] MED LIST changes: +ELIQUIS5 M2 PO; +LOSARTAN POTAS100 MG PO
--- NOTE | 2021-10-13 07:34 | NUR ---
10/13/21 0734 Vera Hobson [id number]
--- NOTE | 2021-10-13 08:19 | NUR ---
10/13/21 0819 AMANDA ALLRED IODINE ALLERGY SKIN TEST PERFORMED IN [facility].
== END 2021-10-13 08:47 | disposition home or self-care (01) ==
LOC: ORSCSDS 06:54
PROVIDERS: Ophthalmology
PROC: 08RJ3JZ Replacement of Right Lens with Synthetic Substitute, Percutaneous Approach (ICD-10-PCS; principal; 2021-10-13 08:00)
DX: H25.11 Age-related nuclear cataract, right eye (principal); H21.81 Floppy iris syndrome; I10 Essential (primary) hypertension; I48.91 Unspecified atrial fibrillation; I50.9 Heart failure, unspecified; I25.10 Atherosclerotic heart disease of native coronary artery without angina pectoris; G47.33 Obstructive sleep apnea (adult) (pediatric); E11.9 Type 2 diabetes mellitus without complications; E66.9 Obesity, unspecified; Z68.38 Body mass index [BMI] 38.0-38.9, adult; E78.00 Pure hypercholesterolemia, unspecified; Z95.0 Presence of cardiac pacemaker; Z79.899 Other long term (current) drug therapy
CPT/HCPCS: 82947; J2001; J2250; J3010; J3301; J7040; V2632

== ENCOUNTER 2021-11-03 08:15 | Day surgery (SDC) | payer OTHER ==
[~2021-11-03] VITALS: Ht 162.6 cm; Wt 96.4 kg
--- NOTE | 2021-11-03 08:52 | NUR ---
11/03/21 0852 Kassidy Fernandes SPOKE WITH CAREGIVER JOSAFAT, REPORTS PT TOOK NO MEDICATIONS TODAY. MEDICATION GIVEN LAST NIGHT PER GRANDSON. PT POOR HISTORIAN. CAREGIVER ELECTED TO WAIT IN THE CAR.
== END 2021-11-03 10:09 | disposition home or self-care (01) ==
LOC: ORSCSDS 08:15
PROVIDERS: Ophthalmology
PROC: 08RK3JZ Replacement of Left Lens with Synthetic Substitute, Percutaneous Approach (ICD-10-PCS; principal; 2021-11-03 09:30)
DX: H25.12 Age-related nuclear cataract, left eye (principal); H21.81 Floppy iris syndrome; I10 Essential (primary) hypertension; E78.00 Pure hypercholesterolemia, unspecified; G47.33 Obstructive sleep apnea (adult) (pediatric); I50.9 Heart failure, unspecified; Z95.1 Presence of aortocoronary bypass graft; Z95.0 Presence of cardiac pacemaker; E66.9 Obesity, unspecified; Z79.899 Other long term (current) drug therapy
CPT/HCPCS: J2001; J2250; J3010; J3301; J7040; V2632